=== PATIENT | male | born 1965 | race Two or more races ===

== ENCOUNTER 2018-06-11 09:16 | Inpatient (IN) | payer SELFPAY ==
[~2018-06-11] VITALS: Ht 177.8 cm; Wt 110.1 kg
[2018-06-11] MEDS ORDERED: SODIUM CHLORIDE 0.9% 1,000 ML IV ONE (10:16)
[2018-06-11] MEDS ORDERED: SODIUM CHLORIDE 0.9% 500 ML IVB ONE (10:16)
[2018-06-11] MEDS ORDERED: PROMETHAZINE HCL 25 MG/ML 1ML IV PRN (10:30)
[2018-06-11] MEDS ORDERED: cefTRIAXone 1GM/50ML D5W 50 ML IV ONE (11:30)
[2018-06-11] MEDS ORDERED: FUROSEMIDE 20 MG/2 ML VIAL IV ONE (11:30)
[2018-06-11 11:38] LABS: Basophils # (auto) 0 uL; Basophils % (auto) 0.4 % (0.0-2.0); Eosinophils # (auto) 0 uL; Hematocrit 34.7 % (41.0-53.0); Hemoglobin 11.5 g/dL (13.5-17.5); Lymphocytes # (auto) 0.6 uL; Lymphocytes % (auto) 9.9 % (10.0-50.0); Mean Corpuscular Hemoglobin 28.5 pg (28.0-32.0); Mean Corpuscular Hgb Conc. 33.1 g/dL (32.0-36.0); Mean Corpuscular Volume 86.1 fL (80.0-100.0); Monocytes # (auto) 0.5 uL; Neutrophils # (auto) 4.7 uL; Neutrophils % (auto) 80.7 % (37.0-80.0); Nucleated Red Blood Cells % 0.1 %; Platelet Count (auto) 178 10^3/uL (140-450); Red Blood Cells 4.03 10^6/uL (4.5-5.90); Red Cell Distribution Width 16.5 % (11.8-14.3); White Blood Cell 5.8 10^3/uL (4.4-10.8)
[2018-06-11 11:49] LABS: Calcium 7.3 mg/dL (8.5-10.1); Magnesium 2.2 mg/dL (1.6-2.6); Potassium 3.9 mmol/L (3.5-5.1)
[2018-06-11 11:54] LABS: BUN/Creatinine Ratio 22.6; Bilirubin, Total 0.5 mg/dL (0.2-1.0); Total Protein 6.1 g/dL (6.4-8.2)
[2018-06-11 11:57] LABS: INR 1.13 (0.9-1.15); Partial Thromboplastin Time 36.1 sec (23.78-33.04)
[2018-06-11 13:41] LABS: Urine Bacteria FEW /hpf (None Seen); Urine Blood 3+ /uL (Negative); Urine Mucus FEW (None Seen); Urine Specific Gravity 1.015 (1.001-1.035); Urine WBC 5 /hpf (0 - 3)
[2018-06-11] MEDS ORDERED: ALBUTEROL SULF 2.5 MG/0.5ML(0.5%) NEB SOLN NEB PRN (13:45)
[2018-06-11] MEDS ORDERED: NITROGLYCERIN 0.4 MG SL TAB SL PRN (13:45)
[2018-06-11] MEDS ORDERED: DEXTROSE (50%) 50ML SYRG IV PRN (13:45)
[2018-06-11] MEDS ORDERED: MORPHINE SULFATE 10 MG/ML INJ 1ML SDV IV PRN (13:45)
[2018-06-11] MEDS ORDERED: LORazepam 0.5 MG TAB PO PRN (13:45)
[2018-06-11] MEDS ORDERED: PANTOPRAZOLE 40 MG/10 ML VIAL IV ONE (13:45)
[2018-06-11] MEDS ORDERED: TEMAZEPAM 15 MG CAP PO PRN (13:45)
[2018-06-11] MEDS ORDERED: SODIUM CHLOR 0.9% PF (SALINE LOCK) 10ML VIAL/SYR IV SCH (14:00)
[2018-06-11 14:36] LABS: Alcohol, Urine < 3.0 mg/dL (0-5); Amphetamine Screen, Urine NEGATIVE (NEGATIVE); Barbiturate Scree,Urine NEGATIVE (NEGATIVE); Benzodiazephine Screen, Urine NEGATIVE (NEGATIVE); Cannabinoid Screen, Urine NEGATIVE (NEGATIVE); Cocaine Screen, Urine NEGATIVE (NEGATIVE); Opiate Scree,Urine NEGATIVE (NEGATIVE); Phencyclidine Screen, Urine NEGATIVE (NEGATIVE)
[2018-06-11] MEDS ORDERED: ENALAPRIL MALEATE 2.5 MG TAB PO ONE (14:45)
[2018-06-11 14:58] LABS: CRP High Sensitivity 8.79 mg/dL (< 0.3)
[2018-06-11] MEDS: NITROGLYCERIN 50MG/250ML 250 ML IV SCH (14:59)
--- NOTE | 2018-06-11 16:46 | NUR ---
PICC line placement Patient/Patient significant other educated on need for PICC line placement. All risks and benefits explained and all questions and concerns addressed prior to procedure. Noted past medical history and allergies with no contraindications. INR and Plt counts within acceptable range. 5 fr PICC line inserted via basilic vein using [employer] US and Tip Location System. Sterile technique with maximum barrier precautions utilized. Blood return obtained from each of the three lumens and each flushed easily with NS using proper technique. PICC secured with Stat-lock; biodisc and occlusive dressing applied. Stat portable chest x-ray obtained for PICC tip placement. *Baseline Arm Circumference 30 cm. *Internal Length 44 cm. *External Length 0 cm. *PICC lot #[id number].
[2018-06-11] MEDS: InsuLIN REG 1unit/0.01ml Soln (100units/ml) SC SCH ×2 (16:54→21:56)
[2018-06-11] MEDS: ACCU-CHEK COMFORT CURVE STRIP VI SCH ×2 (16:55→21:56)
[2018-06-11] MEDS ORDERED: LIDOCAINE 1% (LOCAL ANESTH.) PF 5ml SDV ID ONE (17:00)
--- NOTE | 2018-06-11 17:10 | NUR ---
Okay to Use PICC Line CXR confirmed. Primary RN notified.
[2018-06-11] MEDS: FUROSEMIDE 40 MG/4 ML VIAL IV SCH (17:37)
[2018-06-11 18:12] VITALS: BP 215/130
[2018-06-11] MEDS: ALBUTEROL SULF 2.5 MG/0.5ML(0.5%) NEB SOLN NEB SCH (18:12)
[2018-06-11] MEDS ORDERED: AMIODARONE HCL 150 MG in D5W 5% 100 ML IV ONE (18:15)
[2018-06-11] MEDS ORDERED: AMIODARONE HCL 900 MG in DEXTROSE 500 ML IV SCH (18:16)
[2018-06-11 18:35] LABS: Hematocrit 36.9 % (41.0-53.0); Hemoglobin 11.9 g/dL (13.5-17.5)
[2018-06-11] MEDS ORDERED: chlordiazePOXIDE HCL 5 MG CAP PO ONE (19:15)
[2018-06-11] MEDS ORDERED: THIAMINE 100mg/ml INJ (200mg/2ml VIAL) IV ONE (19:15)
[2018-06-11] MEDS ORDERED: MORPHINE SULFATE 10 MG/ML INJ 1ML SDV IV ONE (19:15)
[2018-06-11] MEDS ORDERED: FUROSEMIDE 100 MG/10ML VIAL IV ONE (19:15)
[2018-06-11 20:04] VITALS: BP 152/91
[2018-06-11] MEDS: SODIUM CHLOR 0.9% PF (SALINE LOCK) 10ML VIAL/SYR IV SCH (21:53)
[2018-06-11] MEDS: CARVEDILOL 3.125 MG TAB PO SCH (21:58)
[2018-06-11] MEDS: ATORVASTATIN 20 MG TAB PO SCH (21:58)
[2018-06-11] MEDS ORDERED: FUROSEMIDE 40 MG/4 ML VIAL IV SCH (22:00)
[2018-06-11 22:15] VITALS: BP 134/88
[2018-06-12 00:04] VITALS: BP 125/79
[2018-06-12] MEDS: ALBUTEROL SULF 2.5 MG/0.5ML(0.5%) NEB SOLN NEB SCH ×5 (00:04→19:05)
[2018-06-12] MEDS: chlordiazePOXIDE HCL 5 MG CAP PO SCH ×5 (00:05→21:00)
[2018-06-12 00:54] LABS: Hematocrit 30.5 % (41.0-53.0); Hemoglobin 9.8 g/dL (13.5-17.5)
[2018-06-12] MEDS: AMIODARONE HCL 900 MG in DEXTROSE 500 ML IV SCH (01:14)
[2018-06-12] MEDS: FUROSEMIDE 40 MG/4 ML VIAL IV SCH ×2 (06:00→17:44)
[2018-06-12 06:19] LABS: Basophils # (auto) 0 uL; Basophils % (auto) 0.4 % (0.0-2.0); Eosinophils # (auto) 0 uL; Hematocrit 31.7 % (41.0-53.0); Hemoglobin 10.2 g/dL (13.5-17.5); Lymphocytes # (auto) 0.9 uL; Lymphocytes % (auto) 15.5 % (10.0-50.0); Mean Corpuscular Hemoglobin 28.1 pg (28.0-32.0); Mean Corpuscular Hgb Conc. 32.3 g/dL (32.0-36.0); Mean Corpuscular Volume 86.9 fL (80.0-100.0); Monocytes # (auto) 0.5 uL; Monocytes % (auto) 8.8 % (0.0-12.0); Neutrophils # (auto) 4.2 uL; Neutrophils % (auto) 75.3 % (37.0-80.0); Nucleated Red Blood Cells % 0.1 %; Platelet Count (auto) 136 10^3/uL (140-450); Red Blood Cells 3.64 10^6/uL (4.5-5.90); Red Cell Distribution Width 16.3 % (11.8-14.3); White Blood Cell 5.5 10^3/uL (4.4-10.8)
[2018-06-12 06:48] LABS: Albumin 1.5 g/dL (3.4-5.0); Potassium 3.8 mmol/L (3.5-5.1)
[2018-06-12 06:56] LABS: BUN/Creatinine Ratio 21.2; Bilirubin, Total 0.5 mg/dL (0.2-1.0); Total Protein 5.2 g/dL (6.4-8.2)
[2018-06-12] MEDS: InsuLIN REG 1unit/0.01ml Soln (100units/ml) SC SCH ×4 (07:00→22:00)
[2018-06-12] MEDS: ACCU-CHEK COMFORT CURVE STRIP VI SCH ×4 (08:11→22:00)
[2018-06-12] MEDS: cefTRIAXone 1GM/50ML D5W 50 ML IV SCH (09:05)
[2018-06-12] MEDS ORDERED: NITROGLYCERIN 0.2MG/HR TOPICAL PATCH TD SCH (10:00)
[2018-06-12] MEDS: THIAMINE 100mg/ml INJ (200mg/2ml VIAL) IV SCH (10:16)
[2018-06-12] MEDS: AZITHROMYCIN 500MG/ 250ML 250 ML IV SCH (10:16)
[2018-06-12] MEDS: ASPirin 81 mg TAB PO SCH (10:16)
[2018-06-12] MEDS: SODIUM CHLOR 0.9% PF (SALINE LOCK) 10ML VIAL/SYR IV SCH ×2 (10:16→22:27)
[2018-06-12] MEDS: PANTOPRAZOLE 40 MG TAB PO SCH (10:17)
[2018-06-12] MEDS: CARVEDILOL 3.125 MG TAB PO SCH ×2 (10:17→22:27)
[2018-06-12] MEDS: ENALAPRIL MALEATE 2.5 MG TAB PO SCH (10:17)
[2018-06-12] MEDS: ENOXAPARIN SOD 30 MG/0.3 ML SYRINGE SC SCH (10:17)
[2018-06-12] MEDS ORDERED: chlordiazePOXIDE HCL 5 MG CAP ONE (14:31)
[2018-06-12] MEDS: NITROGLYCERIN 50MG/250ML 250 ML IV SCH (19:15)
[2018-06-12] MEDS ORDERED: LORazepam 2MG/ML-1ML VIAL IV PRN (21:00)
[2018-06-12] MEDS ORDERED: diphenhdrAMINE HCL 50 MG/1 ML VL IV PRN (21:00)
[2018-06-12] MEDS: PROMETHAZINE HCL 25 MG/ML 1ML IV PRN (21:40)
[2018-06-12] MEDS: MORPHINE SULFATE 10 MG/ML INJ 1ML SDV IV PRN (21:40)
[2018-06-12] MEDS: chlordiazePOXIDE HCL 25 MG CAP PO PRN (22:25)
[2018-06-12] MEDS: ATORVASTATIN 20 MG TAB PO SCH (22:27)
[2018-06-13] MEDS: ALBUTEROL SULF 2.5 MG/0.5ML(0.5%) NEB SOLN NEB SCH ×4 (00:17→18:32)
[2018-06-13] MEDS: AMIODARONE HCL 900 MG in DEXTROSE 500 ML IV SCH (00:38)
[2018-06-13 02:09] LABS: % Iron Saturation 5.8 % (20-55)
[2018-06-13 02:37] VITALS: BP 150/78
[2018-06-13] MEDS: chlordiazePOXIDE HCL 5 MG CAP PO SCH ×3 (03:00→15:18)
[2018-06-13 03:40] VITALS: BP 148/82
[2018-06-13 05:39] VITALS: BP 150/92
[2018-06-13] MEDS: FUROSEMIDE 40 MG/4 ML VIAL IV SCH ×2 (06:00→17:46)
--- NOTE | 2018-06-13 06:35 | NUR ---
Respiratory note: PT TAKEN OFF BIPAP AND PLACED ON 2 L OXYMIZER.PT TOLERATING CHANGE WELL. RN AWARE OF CHANGE.
[2018-06-13] MEDS: MORPHINE SULFATE 10 MG/ML INJ 1ML SDV IV PRN ×2 (06:49→12:03)
[2018-06-13] MEDS: ACCU-CHEK COMFORT CURVE STRIP VI SCH ×4 (08:01→22:25)
[2018-06-13] MEDS: InsuLIN REG 1unit/0.01ml Soln (100units/ml) SC SCH ×4 (08:01→22:00)
[2018-06-13 08:48] LABS: Basophils # (auto) 0 uL; Basophils % (auto) 0.4 % (0.0-2.0); Eosinophils # (auto) 0 uL; Hematocrit 29.7 % (41.0-53.0); Hemoglobin 9.5 g/dL (13.5-17.5); Lymphocytes # (auto) 0.8 uL; Lymphocytes % (auto) 13.5 % (10.0-50.0); Mean Corpuscular Hemoglobin 27.5 pg (28.0-32.0); Mean Corpuscular Hgb Conc. 32.1 g/dL (32.0-36.0); Mean Corpuscular Volume 85.4 fL (80.0-100.0); Monocytes # (auto) 0.6 uL; Monocytes % (auto) 9.2 % (0.0-12.0); Neutrophils # (auto) 4.7 uL; Neutrophils % (auto) 76.9 % (37.0-80.0); Nucleated Red Blood Cells % 0.1 %; Platelet Count (auto) 139 10^3/uL (140-450); Red Blood Cells 3.47 10^6/uL (4.5-5.90); Red Cell Distribution Width 16.3 % (11.8-14.3); White Blood Cell 6.1 10^3/uL (4.4-10.8)
[2018-06-13 09:04] LABS: Albumin 1.6 g/dL (3.4-5.0); Calcium 6.8 mg/dL (8.5-10.1); Magnesium 1.9 mg/dL (1.6-2.6); Potassium 3.6 mmol/L (3.5-5.1); Uric Acid 8.5 mg/dL (3.5-7.2)
[2018-06-13] MEDS: THIAMINE 100mg/ml INJ (200mg/2ml VIAL) IV SCH (09:04)
[2018-06-13] MEDS: cefTRIAXone 1GM/50ML D5W 50 ML IV SCH (09:04)
[2018-06-13] MEDS: SODIUM CHLOR 0.9% PF (SALINE LOCK) 10ML VIAL/SYR IV SCH ×2 (09:04→22:25)
[2018-06-13] MEDS: NITROGLYCERIN 50MG/250ML 250 ML IV SCH ×2 (09:04→11:57)
[2018-06-13 09:09] LABS: BUN/Creatinine Ratio 20.2; Bilirubin, Total 0.5 mg/dL (0.2-1.0); Total Protein 5.2 g/dL (6.4-8.2)
[2018-06-13] MEDS: ASPirin 81 mg TAB PO SCH (09:14)
[2018-06-13] MEDS: PANTOPRAZOLE 40 MG TAB PO SCH (09:15)
[2018-06-13] MEDS: ENALAPRIL MALEATE 2.5 MG TAB PO SCH (09:15)
[2018-06-13] MEDS: CARVEDILOL 3.125 MG TAB PO SCH ×2 (09:15→22:24)
[2018-06-13] MEDS: ENOXAPARIN SOD 30 MG/0.3 ML SYRINGE SC SCH (09:19)
[2018-06-13] MEDS: AZITHROMYCIN 500MG/ 250ML 250 ML IV SCH (10:28)
[2018-06-13] MEDS ORDERED: AMIODARONE HCL 200 MG TAB PO ONE (16:15)
[2018-06-13] MEDS ORDERED: MAGNESIUM SULFATE 1GM/100ML 100 ML IV ONE (16:15)
--- NOTE | 2018-06-13 20:00 | NUR ---
Admit to [facility] admitted to [facility] via bed on cardiac nurse, and portable 02. Patient connected to unit monitoring, NSR 70's and oxygen/oxymizer @ 4L/min, and weighed by bedscale. Patient oriented to Sommer Jennings, primary RN, unit, room, bed, and unit policies regarding patient care and visiting hours. All questions and concerns addressed, patient verbalized understanding. NOTE: Scrotal edema noted with generalized healed scars secondary to post shingles infection 4 months ago. MRSA swab done.
--- NOTE | 2018-06-13 20:15 | NUR ---
Cleaned pt, complete linen and gown changed. Repositioned for comfort.
[2018-06-13 21:01] VITALS: BP 137/72
[2018-06-13] MEDS: ATORVASTATIN 20 MG TAB PO SCH (22:23)
[2018-06-13] MEDS: AMIODARONE HCL 200 MG TAB PO SCH (22:24)
[2018-06-14] VITALS (7 sets, daily range): BP systolic 90–129; BP diastolic 58–75
[2018-06-14] MEDS: ALBUTEROL SULF 2.5 MG/0.5ML(0.5%) NEB SOLN NEB SCH ×4 (00:38→18:11)
[2018-06-14] MEDS ORDERED: AMLO5TAB13 PO (02:45)
[2018-06-14] MEDS ORDERED: METF-370 PO (02:45)
[2018-06-14] MEDS ORDERED: GLIM4TAB42 PO (02:46)
[2018-06-14] MEDS ORDERED: NAP500T PO (02:51)
--- NOTE | 2018-06-14 04:46 | NUR ---
Blood draw done.
[2018-06-14] MEDS: FUROSEMIDE 40 MG/4 ML VIAL IV SCH ×2 (05:29→18:00)
[2018-06-14 05:30] LABS: Hematocrit 28.9 % (41.0-53.0); Hemoglobin 9.5 g/dL (13.5-17.5)
[2018-06-14 05:37] LABS: Calcium 7.1 mg/dL (8.5-10.1); Magnesium 2.2 mg/dL (1.6-2.6); Potassium 3.5 mmol/L (3.5-5.1)
[2018-06-14] MEDS: InsuLIN REG 1unit/0.01ml Soln (100units/ml) SC SCH ×5 (06:30→23:30)
[2018-06-14] MEDS: ACCU-CHEK COMFORT CURVE STRIP VI SCH ×4 (06:30→22:43)
--- NOTE | 2018-06-14 07:50 | NUR ---
ASSESS- PT. LYING IN BED WITH EYES CLOSED, AROUSABLE TO NAME. ALERT AND ORIENTED TIMES FOUR. PT. STATED HIS BACK HURTS AT TIMES. ON OXYMIZER 4L. NO SOB. LUNGS WITH RALES DIGNA. INSPIRATORY AND EXPIRATORY. ABD. SOFT, LG., NON-TENDER. BOWEL SOUNDS ALL FOUR QUADRANTS. NO N/V. VOIDING VIA URINAL CLEAR LT. CYNTHIA URINE. SCROTOM SWOLLEN. RADIAL PULSES STRONG, PALPABLE DIGNA. PEDAL PULSES STRONG, PALPABLE DIGNA. 2 PLUS EDEMA LE DIGNA. SKIN INTACT. MULTIPLE SCABS ALL OVER BODY, NOT OPEN. MOVES UPPER EXTREMITIES WITHOUT DIFFICULTY DIGNA. MOVES LE DIGNA., WEAKER. ABLE TO TURN SELF IN BED.
[2018-06-14 09:04] LABS: BUN/Creatinine Ratio 18.1; Calcium 7.1 mg/dL (8.5-10.1); Potassium 3.5 mmol/L (3.5-5.1)
[2018-06-14] MEDS: SODIUM CHLOR 0.9% PF (SALINE LOCK) 10ML VIAL/SYR IV SCH ×2 (10:00→22:42)
[2018-06-14] MEDS: AZITHROMYCIN 500MG/ 250ML 250 ML IV SCH (10:07)
[2018-06-14] MEDS: cefTRIAXone 1GM/50ML D5W 50 ML IV SCH (10:07)
[2018-06-14] MEDS: THIAMINE 100mg/ml INJ (200mg/2ml VIAL) IV SCH (10:07)
[2018-06-14] MEDS: ENOXAPARIN SOD 30 MG/0.3 ML SYRINGE SC SCH (10:07)
[2018-06-14] MEDS: AMIODARONE HCL 200 MG TAB PO SCH ×2 (10:08→22:42)
[2018-06-14] MEDS: PANTOPRAZOLE 40 MG TAB PO SCH (10:08)
[2018-06-14] MEDS: CARVEDILOL 3.125 MG TAB PO SCH ×2 (10:09→22:40)
[2018-06-14] MEDS: ENALAPRIL MALEATE 2.5 MG TAB PO SCH (10:09)
[2018-06-14] MEDS: ASPirin 81 mg TAB PO SCH (10:09)
[2018-06-14] MEDS ORDERED: METOLAZONE 5 MG TAB PO ONE (10:15)
--- NOTE | 2018-06-14 10:30 | NUR ---
VISITOR AT THE BS.
[2018-06-14] MEDS: MORPHINE SULFATE 10 MG/ML INJ 1ML SDV IV PRN ×3 (10:55→22:48)
--- NOTE | 2018-06-14 10:55 | NUR ---
PT. REPORTING BACK PAIN 9 ON A SCALE OF 0-10. MED. WITH MORPHINE 2MG. IVP.
--- NOTE | 2018-06-14 11:25 | NUR ---
PT'S. PAIN DECREASED TO A 6.
--- NOTE | 2018-06-14 13:29 | NUR ---
NUTRITION CONSULT/ASSESSMENT NOTES Please refer to link notes of nutrition screen form filed under the intervention section of the plan of care for further details. Est. Needs: 1800 kcal to 2400 kcal (15-20 kcal/kgBW), 75 gms to 90 gms pro (1.0-1.2 gms/kgBW). Will continue to monitor pertinent labs and reassess nutrient need prn Thank you for this consult. Addendum: 06/14/18 at [address] Amended: Links added.
--- NOTE | 2018-06-14 14:57 | NUR ---
PT. HAVING BACK PAIN 9 ON A SCALE OF 0-10, MOANING IN BED. MED. WITH MORPHINE 2MG. IVP.
--- NOTE | 2018-06-14 15:25 | NUR ---
BACK PAIN HAS DECREASED TO A 5 ON A SCALE OF 0-10.
--- NOTE | 2018-06-14 16:30 | NUR ---
PT VERY TIRED. ATTEMPT P.T. TOMORROW.
--- NOTE | 2018-06-14 17:30 | NUR ---
REPORT GIVEN TO LALO BAER.
--- NOTE | 2018-06-14 17:37 | NUR ---
RECEIVED REPORT AND ASSUMED CARE OF THE PATIENT FROM PARTHA MAY , PATIENT LYING IN BED WITH EYES CLOSED APPEARS TO BE SLEEPING,
--- NOTE | 2018-06-14 18:20 | NUR ---
UNABLE TO GIVE THE LASIX 60ML DUE TO B/P BEING 94/64 AT THIS TIME, WILL CONTNINUE TO MONITOR, LYING IN BED ASKING FOR PIZZA, EXPRESS TO HIM THAT IT WAS NOT ON THE MENU FOR DINNER IN THE KITCHEN, HE WOULD HAVE TO WAIT UNTIL HE GETS HOMES, USES THE BEDPAN AND URINAL, BUT IS INCONTINENT AT TIMES DUE TO SWELLING OF THE PENIS AND SCROTUM, PICC LINE TO THE LEANA INTACT AND PATENT, O2 AT 2L BY THE OXYMIZER, A/O TIMES 4, WILL CONTINUE TO MONITOR AND GIVE REPORT TO THE NEXT SHIFT
[2018-06-14] MEDS: ATORVASTATIN 20 MG TAB PO SCH (22:41)
--- NOTE | 2018-06-14 23:33 | NUR ---
Pt stable but moaning. Bladder feels distended. Tried to help pt use urinal and only a few drops came out. I asked pt if I could place a Karimi, he said no and that they already tried and nothing came out and that when they took the Karimi back out after an hour it hurt worse. Will bladder scan pt to see how much urine is being retained.
[2018-06-14 23:47] LABS: BUN/Creatinine Ratio 18.7; Calcium 6.8 mg/dL (8.5-10.1); Potassium 3.5 mmol/L (3.5-5.1)
--- NOTE | 2018-06-15 | NUR ---
Karimi 16 Fr placed. Bladder scanner unable to read. 1400 out in [place] right after placement. Pt states abd feels better. Will continue to monitor.
[2018-06-15] MEDS: ALBUTEROL SULF 2.5 MG/0.5ML(0.5%) NEB SOLN NEB SCH ×4 (00:31→18:39)
[2018-06-15 01:21] LABS: Urine Bacteria NONE SEEN /hpf (None Seen); Urine Blood TRACE /uL (Negative); Urine Hyaline Cast MANY /lpf (0 - 2); Urine Mucus FEW (None Seen); Urine WBC 1 /hpf (0 - 3)
[2018-06-15 05:46] LABS: BUN/Creatinine Ratio 19.6; Calcium 7.1 mg/dL (8.5-10.1); Potassium 3.3 mmol/L (3.5-5.1)
--- NOTE | 2018-06-15 06:02 | NUR ---
Received call of Critical Value Glucose 44. Juice offered and a Glucerna also offered. Will check glucose in 10 min. Pt stable and states he does not feel like his glucose is low.
[2018-06-15] MEDS: InsuLIN REG 1unit/0.01ml Soln (100units/ml) SC SCH ×3 (06:30→21:53)
[2018-06-15] MEDS: FUROSEMIDE 40 MG/4 ML VIAL IV SCH ×2 (06:30→18:07)
[2018-06-15] MEDS: ACCU-CHEK COMFORT CURVE STRIP VI SCH ×4 (06:30→21:53)
--- NOTE | 2018-06-15 06:31 | NUR ---
Glucose 43 after apple juice and some Glucerna. Does not want orange juice. Now 2 Cranberry juices offered. Will check blood sugar again in 10 min.
[2018-06-15 08:00] VITALS: BP 99/56
[2018-06-15] MEDS: cefTRIAXone 1GM/50ML D5W 50 ML IV SCH (09:11)
[2018-06-15 10:00] VITALS: BP 100/64
[2018-06-15] MEDS: CARVEDILOL 3.125 MG TAB PO SCH ×2 (10:00→21:52)
[2018-06-15] MEDS: ENALAPRIL MALEATE 2.5 MG TAB PO SCH (10:00)
[2018-06-15] MEDS: ASPirin 81 mg TAB PO SCH (10:22)
[2018-06-15] MEDS: THIAMINE 100mg/ml INJ (200mg/2ml VIAL) IV SCH (10:22)
[2018-06-15] MEDS: ENOXAPARIN SOD 30 MG/0.3 ML SYRINGE SC SCH (10:22)
[2018-06-15] MEDS: AZITHROMYCIN 500MG/ 250ML 250 ML IV SCH (10:22)
[2018-06-15] MEDS: SODIUM CHLOR 0.9% PF (SALINE LOCK) 10ML VIAL/SYR IV SCH ×2 (10:23→21:37)
[2018-06-15] MEDS: AMIODARONE HCL 200 MG TAB PO SCH ×2 (10:23→21:52)
[2018-06-15] MEDS: PANTOPRAZOLE 40 MG TAB PO SCH (10:23)
[2018-06-15 10:28] LABS: BUN/Creatinine Ratio 19.2; Potassium 3.4 mmol/L (3.5-5.1)
--- NOTE | 2018-06-15 11:30 | NUR ---
PATIENT IS VERY TIRED. ATTEMPT P.T. LATER.
[2018-06-15 11:52] VITALS: BP 107/73
[2018-06-15] MEDS ORDERED: POTASSIUM CHL 10 Meq TABLET PO ONE (12:00)
[2018-06-15] MEDS: LACTULOSE 20Gm/30ML SOLN PO PRN (12:10)
--- NOTE | 2018-06-15 12:29 | NUR ---
Consent for left heart cath signed by patient. Patient states he doesn't want any blood due to his shinto and signed consent to not receive blood.
[2018-06-15] MEDS ORDERED: ACETYLCYSTEINE ORAL for CIN 20%(200MG/ML) 4ML PO STA (14:43)
[2018-06-15 15:52] VITALS: BP 115/69
[2018-06-15] MEDS: MORPHINE SULFATE 10 MG/ML INJ 1ML SDV IV PRN ×2 (16:18→21:40)
[2018-06-15 19:46] VITALS: BP 120/74
[2018-06-15] MEDS: ATORVASTATIN 20 MG TAB PO SCH (21:52)
[2018-06-15] MEDS ORDERED: ACETYLCYSTEINE ORAL for CIN 20%(200MG/ML) 4ML PO SCH (22:00)
[2018-06-15 22:16] LABS: BUN/Creatinine Ratio 18.5; Calcium 6.9 mg/dL (8.5-10.1); Potassium 3.5 mmol/L (3.5-5.1)
[2018-06-16] VITALS: BP 115/76
[2018-06-16 04:00] VITALS: BP 110/71
[2018-06-16] MEDS: MORPHINE SULFATE 10 MG/ML INJ 1ML SDV IV PRN (05:40)
[2018-06-16] MEDS: ALBUTEROL SULF 2.5 MG/0.5ML(0.5%) NEB SOLN NEB SCH ×4 (05:59→18:44)
[2018-06-16] MEDS: FUROSEMIDE 40 MG/4 ML VIAL IV SCH ×2 (06:00→18:53)
[2018-06-16 06:08] LABS: Basophils # (auto) 0 uL; Basophils % (auto) 0.3 % (0.0-2.0); Eosinophils # (auto) 0.1 uL; Eosinophils % (auto) 1.6 % (0.0-7.0); Hematocrit 30.1 % (41.0-53.0); Hemoglobin 9.9 g/dL (13.5-17.5); Lymphocytes # (auto) 0.3 uL; Lymphocytes % (auto) 5.1 % (10.0-50.0); Mean Corpuscular Hgb Conc. 33.1 g/dL (32.0-36.0); Mean Corpuscular Volume 84.5 fL (80.0-100.0); Monocytes # (auto) 0.7 uL; Monocytes % (auto) 9.5 % (0.0-12.0); Neutrophils # (auto) 5.7 uL; Neutrophils % (auto) 83.5 % (37.0-80.0); Platelet Count (auto) 160 10^3/uL (140-450); Red Blood Cells 3.56 10^6/uL (4.5-5.90); Red Cell Distribution Width 16.2 % (11.8-14.3); White Blood Cell 6.9 10^3/uL (4.4-10.8)
[2018-06-16 06:21] LABS: INR 1.07 (0.9-1.15); Partial Thromboplastin Time 29.2 sec (23.78-33.04); Prothrombin Time 11.4 sec (9.27-12.13)
[2018-06-16 06:23] LABS: BUN/Creatinine Ratio 18.4; Calcium 7.2 mg/dL (8.5-10.1); Magnesium 2.1 mg/dL (1.6-2.6); Potassium 3.5 mmol/L (3.5-5.1)
[2018-06-16] MEDS: InsuLIN REG 1unit/0.01ml Soln (100units/ml) SC SCH ×4 (07:00→21:34)
[2018-06-16] MEDS: ACCU-CHEK COMFORT CURVE STRIP VI SCH ×4 (07:00→21:34)
[2018-06-16 07:30] VITALS: BP 114/70
--- NOTE | 2018-06-16 07:30 | NUR ---
Opening Shift Note Assumed care of patient, awake and alert. No S/S of distress/SOB. On 4LPM oxygen via nasal cannula, saturation 99%. Complains of back pain 12/17, re-positioned for comfort, will give Morphine PRN. RT upper arm PICC, hematoma noted around PICC. See interventions for complete physical assessment. Bed locked on low position, side rails up x2, bed alarms on at all times, call hermosillo within reach, instructed on POC and to call for assist PRN, family at bedside, will continue to monitor for changes Q1hr and PRN.
--- NOTE | 2018-06-16 07:35 | NUR ---
Pt stable. States pain medication not working for back pain. paged for orders.
[2018-06-16] MEDS ORDERED: MORPHINE SULFATE 10 MG/ML INJ 1ML SDV IV ONE (08:00)
[2018-06-16] MEDS: cefTRIAXone 1GM/50ML D5W 50 ML IV SCH (08:34)
--- NOTE | 2018-06-16 09:10 | NUR ---
Wayne PT attempted to see patient. Wayne made aware patient was given Morphine less than an hour ago and patient sleeping at this time. Will come back and see patient later today.
[2018-06-16] MEDS: ENOXAPARIN SOD 30 MG/0.3 ML SYRINGE SC SCH (09:35)
[2018-06-16] MEDS: SODIUM CHLOR 0.9% PF (SALINE LOCK) 10ML VIAL/SYR IV SCH ×2 (09:51→21:33)
[2018-06-16] MEDS: AZITHROMYCIN 500MG/ 250ML 250 ML IV SCH (09:51)
[2018-06-16] MEDS: ASPirin 81 mg TAB PO SCH (09:51)
[2018-06-16] MEDS: THIAMINE 100mg/ml INJ (200mg/2ml VIAL) IV SCH (09:51)
[2018-06-16] MEDS: AMIODARONE HCL 200 MG TAB PO SCH ×2 (09:52→21:34)
[2018-06-16] MEDS: ENALAPRIL MALEATE 2.5 MG TAB PO SCH (09:52)
[2018-06-16] MEDS: PANTOPRAZOLE 40 MG TAB PO SCH (09:52)
[2018-06-16] MEDS: CARVEDILOL 3.125 MG TAB PO SCH ×2 (09:53→21:35)
[2018-06-16] MEDS ORDERED: ACETYLCYSTEINE ORAL for CIN 20%(200MG/ML) 4ML PO ONE ×2 (10:15→12:00)
--- NOTE | 2018-06-16 10:20 | NUR ---
Dr Lennon at bedside, updated on patient's status. Verbal orders read back and verified. Will carry out.
[2018-06-16] MEDS ORDERED: GABAPENTIN 300 MG CAP PO ONE (10:30)
[2018-06-16 11:50] VITALS: BP 110/72
[2018-06-16 12:28] LABS: Hepatitis B Surface Antigen Negative (Negative)
[2018-06-16 12:29] LABS: Hepatitis C Antibody Negative (Negative)
[2018-06-16] MEDS: HYDROmorphone HCL 2 MG/ML VL IV PRN (13:36)
--- NOTE | 2018-06-16 14:00 | NUR ---
Patient refused to be turned at this time.
[2018-06-16] MEDS ORDERED: IODIXANOL 320MG/ML 100ML BTL IV ONE ×2 (14:57→16:29)
[2018-06-16] MEDS ORDERED: LIDOCAINE 2%HCL (LOCAL ANESTH.) INJ 20ML MDV ONE ×2 (14:57→16:02)
--- NOTE | 2018-06-16 15:00 | NUR ---
Called Dr Whitmore because family wanted to know when procedure is gonna be done. Per Dr Whitmore's staff, "Dr Whitmore don't know yet". Will keep patient NPO.
[2018-06-16] MEDS: chlordiazePOXIDE HCL 25 MG CAP PO PRN (15:13)
[2018-06-16] MEDS: PROMETHAZINE HCL 25 MG/ML 1ML IV PRN (15:38)
[2018-06-16 15:39] VITALS: BP 101/64
[2018-06-16] MEDS ORDERED: IOHEXOL 350 MG/ML 100ML IJ ONE (16:03)
[2018-06-16] MEDS ORDERED: SODIUM CHL 0.9% 50 ML ONE (16:08)
[2018-06-16] MEDS ORDERED: ANGIOMAX 250 MG VIAL IV ONE (16:08)
[2018-06-16] MEDS ORDERED: MIDAZOLAM HCL 1MG/1ML-2 ML VIAL ONE (16:08)
[2018-06-16] MEDS ORDERED: fentaNYL CITRATE 100 MCG/2 ML VL ONE (16:08)
--- NOTE | 2018-06-16 16:15 | NUR ---
Patient out of room to Tank Systems Maintainer via hospital bed.
--- NOTE | 2018-06-16 16:30 | NUR ---
PT WENT DOWN TO CERTIFIED SURGICAL FIRST ASSISTANT. HOLD P.T. TODAY.
[2018-06-16] MEDS ORDERED: CLOPIDOGREL 300 MG TAB ONE (16:57)
[2018-06-16] MEDS ORDERED: ASPirin 325 MG TAB ONE (16:58)
--- NOTE | 2018-06-16 17:30 | NUR ---
Patient back to room from Autocad Designer s/p LT Heart Cath with stent on LAD per report from Marika MAY. Per Marika air went into artery, will watch out for any signs of air embolism. VS WNL, BP 117/71, HR 66, RR 12, Oxygen saturation 100 on @ LPM oxygen via nasal cannula. RT groin dressing dry and intact, no hematoma, bruising or signs of bleeding noted. Palpable pedal pulses, toes warm to touch. Bed locked on low position, side rails up x2, bed alarms on at all times, will continue to monitor.
[2018-06-16] MEDS ORDERED: SODIUM CHLORIDE 0.9% 500 ML IV ONE (17:45)
--- NOTE | 2018-06-16 19:00 | NUR ---
Paged Dr Whitmore and called back, updated on patient's status. Made aware patient's family wanted to speak to him. Per Dr Whitmore patient is already out of hospital. Received telephone order to transfer patient to Telemetry floor. Will carry out order.
--- NOTE | 2018-06-16 19:30 | NUR ---
SHIFT OPENING NOTE RECEIVED PATIENT ASLEEP. AWOKEN WITH VOICE AND LIGHT TOUCH. PATIENT IS STILL GROGGY FROM PROCEDURE MEDS. ON 2 L N/C. PHYSICAL ASSESSMENT COMPLETED. PATIENT IS STATUS POST LHC WITH ACCESS THROUGH RIGHT GROIN. DRESSING NOTED ON RIGHT LOWER ABDOMINAL AREA.C/D/I NO BLEEDING OR HEMATOMA PRESENT. NORMAL PULSES IN RIGHT LOWER EXTREMITY. PICC ON RIGHT UPPER ARM. MARCUS CATH DRAINING YELLOW URINE. INSTRUCTED PATIENT AND FAMILY ON POC AND TO CALL FOR ASSIST NEEDED. BED IS IN THE LOWEST POSITION WITH SIDE RAILS UP X2, CALL LIGHT IS WITHIN REACH.
[2018-06-16 19:48] VITALS: BP 119/77
[2018-06-16] MEDS: GABAPENTIN 300 MG CAP PO SCH (21:35)
[2018-06-16] MEDS: ATORVASTATIN 20 MG TAB PO SCH (21:35)
--- NOTE | 2018-06-16 22:10 | NUR ---
FAMILY LEFT BEDSIDE WENT HOME FOR THE NIGHT
[2018-06-16 22:25] LABS: Calcium 7.1 mg/dL (8.5-10.1); Potassium 3.4 mmol/L (3.5-5.1)
--- NOTE | 2018-06-16 23:30 | NUR ---
RIGHT GROIN AREA CHECK DRESSING IS C/D/I. NO BLEEDING OR HEMATOMA NOTED. NORMAL PULSES IN RIGHT LOWER EXTREMITY. WILL CONTINUE TO CLOSELY MONITOR.
[2018-06-17] VITALS (7 sets, daily range): BP systolic 120–129; BP diastolic 62–86
[2018-06-17] MEDS: ALBUTEROL SULF 2.5 MG/0.5ML(0.5%) NEB SOLN NEB SCH ×4 (00:23→19:56)
--- NOTE | 2018-06-17 01:00 | NUR ---
ROUNDS PATIENT IS LAYING IN BED AWAKE WATCHING TV. ASSISTED HIM WITH REPOSITIONING. NO SOB OR DISTRESS NOTED. VS STABLE. WILL CONTINUE TO MONITOR.
--- NOTE | 2018-06-17 01:10 | NUR ---
RIGHT GROIN AREA CHECK DRESSING IS C/D/I. NO BLEEDING OR HEMATOMA NOTED. NORMAL PULSES IN RIGHT LOWER EXTREMITY. WILL CONTINUE TO CLOSELY MONITOR.
--- NOTE | 2018-06-17 05:00 | NUR ---
MORNING HYGIENE CARE FULL BED BATH PERFORMED. PATIENT CLEANSED WITH SOAP AND WATER. FULL LINEN CHANGE DONE. GOWN CHANGED. PATIENT REPOSITIONED FOR COMFORT. TOLERATED IT WELL.
--- NOTE | 2018-06-17 05:05 | NUR ---
RIGHT GROIN SITE CHECK NO NEW BLEEDING OR HEMATOMA NOTED. NORMAL PULSES IN RIGHT LOWER EXTREMITY. WILL CONTINUE TO MONITOR.
--- NOTE | 2018-06-17 05:15 | NUR ---
ICE CHIPS PROVIDED TO PATIENT
[2018-06-17] MEDS: InsuLIN REG 1unit/0.01ml Soln (100units/ml) SC SCH ×4 (05:57→21:43)
[2018-06-17] MEDS: FUROSEMIDE 40 MG/4 ML VIAL IV SCH ×2 (05:57→18:11)
[2018-06-17] MEDS: ACCU-CHEK COMFORT CURVE STRIP VI SCH ×4 (05:57→21:45)
--- NOTE | 2018-06-17 07:00 | NUR ---
Respiratory note:SCHED MED NEB TX REFUSE: REFUSED TX AT THIS TIME, STATES HE IS TIRED WOULD LIKE TO CONTINUE SLEEPING. NO SS SOB, OR RESP DISTRESS NOTED, SPO2 98% @ RA, HR 78, RR 16, B/S COARSE DIGNA T/O. WILL CONTINUE TO MONITOR PATIENT, PT AWARE OF ANY SS OF SOB TO CONTACT RN FOR MED NEB TX.
--- NOTE | 2018-06-17 07:10 | NUR ---
END OF SHIFT REPORT GIVEN AND CARE ENDORSED TO DAY SHIFT RN.
[2018-06-17] MEDS: HYDROmorphone HCL 2 MG/ML VL IV PRN ×2 (08:31→16:59)
[2018-06-17] MEDS: cefTRIAXone 1GM/50ML D5W 50 ML IV SCH (08:41)
[2018-06-17] MEDS: AZITHROMYCIN 500MG/ 250ML 250 ML IV SCH (10:09)
--- NOTE | 2018-06-17 10:09 | NUR ---
PT. WILL BE TRANSFERRED TO [address] .REPORT GIVEN TO LALO MAN.
[2018-06-17] MEDS: CLOPIDOGREL BISULFATE 75 MG TAB PO SCH (10:19)
[2018-06-17] MEDS: ENOXAPARIN SOD 30 MG/0.3 ML SYRINGE SC SCH (10:19)
[2018-06-17] MEDS: ASPirin 81 mg TAB PO SCH (10:20)
[2018-06-17] MEDS: PANTOPRAZOLE 40 MG TAB PO SCH (10:20)
[2018-06-17] MEDS: GABAPENTIN 300 MG CAP PO SCH ×2 (10:21→21:45)
[2018-06-17] MEDS: AMIODARONE HCL 200 MG TAB PO SCH ×2 (10:22→21:44)
[2018-06-17] MEDS: CARVEDILOL 3.125 MG TAB PO SCH ×2 (10:22→21:44)
[2018-06-17] MEDS: SODIUM CHLOR 0.9% PF (SALINE LOCK) 10ML VIAL/SYR IV SCH ×2 (10:26→21:44)
--- NOTE | 2018-06-17 10:40 | NUR ---
Received reports from [facility] RN, patient transferred to room via bed. Patient oriented to floor policy. Bed alarm on and side rails up x2. Will continue care.
--- NOTE | 2018-06-17 11:33 | NUR ---
Resumed care of patient at 0700. Orders reviewed and ongoing assessments done. Being treated for multiple problems and S/P [facility] yesterday with intervention. Remains alert and oriented and able to make needs known. Insertion site to right groin with dressings, dry and intact with no raised hematoma and denies pain, good palpable pulse to right lower extremity. Continues to c/o chronic back pain. Offered to get out of bed to chair but declined. Medicated with Dilaudid at 0831, effective. Poor oral intake and declined breakfast. Did obtain a cup of fruit cocktail and a yoghurt, reinforced the importance of nutrition for healing. at bedside assisting with ADL's. Dr. Lennon, senior materials analyst rounded on the patient earlier today. Discussed patient's condition and plan of care. Patient's and daughter at bedside. Patient transferred by retail sales professional Helen at 1030 to room 297 [address].
--- NOTE | 2018-06-17 12:17 | NUR ---
Respiratory note: SCHED MED NEB TX REFUSED: PATIENT WANTS TO CONTINUE SLEEPING, STATES NO SOB AND NO RESP DISTRESS NOTED AT THIS TIME. PATIENT NO SS OF SOB OR RESP DISTRESS, SPO2 100% @ 2 L NC, HR 79, RR 16, B/S CLEAR DIGNA T/O. WILL CONTINUE TO MONITOR PATIENT T/O. FAMILY AT BEDSIDE.
--- NOTE | 2018-06-17 16:00 | NUR ---
Followed up with Wayne ALVAREZ regarding PT evaluation. Will continue care.
--- NOTE | 2018-06-17 17:45 | NUR ---
Noted to have wound on the sacral area. Photos taken. Cleansed the wound, let it dry, applied barrier cream and cover with optifoam dressing. Wound consult ordered. Addendum: 06/17/18 at 1758 by Rose Nguyen RN Turned to sides every 2 hours.
[2018-06-17] MEDS: THIAMINE HCL 100 MG TAB PO SCH (18:10)
--- NOTE | 2018-06-17 20:00 | NUR ---
MARCUS OUTPUT EMPTIED 900ML CLEAR CYNTHIA URINE FROM MARCUS CATHETER.
--- NOTE | 2018-06-17 20:02 | NUR ---
RT NOTE PT WAS SEEN BY RT FOR HNN TX. PT TOLERATES WELL VIA MASK. NO ADVERSE REACTION NOTED. CONT ORDERED POX 91% ON R/A. 2L NASAL CANNULA ON FOR PT USE NEEDED Addendum: 06/17/18 at 2002 by Sofiya Arana RT Amended: Links added.
[2018-06-17] MEDS: ATORVASTATIN 20 MG TAB PO SCH (21:44)
[2018-06-18] MEDS: ALBUTEROL SULF 2.5 MG/0.5ML(0.5%) NEB SOLN NEB SCH ×4 (00:27→20:19)
[2018-06-18 05:07] VITALS: BP 132/77
[2018-06-18] MEDS: FUROSEMIDE 40 MG/4 ML VIAL IV SCH (06:34)
[2018-06-18] MEDS: InsuLIN REG 1unit/0.01ml Soln (100units/ml) SC SCH ×4 (06:34→22:00)
[2018-06-18] MEDS: ACCU-CHEK COMFORT CURVE STRIP VI SCH ×4 (06:34→22:23)
[2018-06-18 06:54] LABS: Hematocrit 28.6 % (41.0-53.0); Hemoglobin 9.4 g/dL (13.5-17.5); Mean Corpuscular Hemoglobin 28.1 pg (28.0-32.0); Mean Corpuscular Hgb Conc. 32.9 g/dL (32.0-36.0); Mean Corpuscular Volume 85.3 fL (80.0-100.0); Platelet Count (auto) 175 10^3/uL (140-450); Red Blood Cells 3.35 10^6/uL (4.5-5.90); Red Cell Distribution Width 16.1 % (11.8-14.3); White Blood Cell 5.9 10^3/uL (4.4-10.8)
[2018-06-18 07:01] LABS: BUN/Creatinine Ratio 17.7; Calcium 7.5 mg/dL (8.5-10.1); Magnesium 2.2 mg/dL (1.6-2.6); Potassium 3.4 mmol/L (3.5-5.1)
[2018-06-18 07:14] LABS: Basophils % (manual) 0 (0.0-2.0); Blast Cells 0; Metamyelocytes % 0; Myelocytes % 0; Promyelocytes % 0; Reactive Lymphocytes 0
--- NOTE | 2018-06-18 08:00 | NUR ---
Opening Shift Note Assumed care of patient, awake and alert. No S/S of distress/SOB or pain. With sacral optifoam dressing intact. For wound consult today. Instructed on POC and to call for assist PRN, will continue to monitor for changes Q1hr and PRN.
[2018-06-18 08:23] VITALS: BP 143/62
[2018-06-18] MEDS: cefTRIAXone 1GM/50ML D5W 50 ML IV SCH (09:20)
[2018-06-18] MEDS: ENOXAPARIN SOD 30 MG/0.3 ML SYRINGE SC SCH (09:27)
[2018-06-18] MEDS: PANTOPRAZOLE 40 MG TAB PO SCH (09:27)
[2018-06-18] MEDS: CLOPIDOGREL BISULFATE 75 MG TAB PO SCH (09:28)
[2018-06-18] MEDS: ASPirin 81 mg TAB PO SCH (09:28)
[2018-06-18] MEDS: CARVEDILOL 3.125 MG TAB PO SCH ×2 (09:28→22:23)
[2018-06-18] MEDS: GABAPENTIN 300 MG CAP PO SCH ×2 (09:28→22:23)
[2018-06-18] MEDS: AMIODARONE HCL 200 MG TAB PO SCH ×2 (09:29→22:22)
[2018-06-18] MEDS: THIAMINE HCL 100 MG TAB PO SCH (09:29)
[2018-06-18] MEDS: SODIUM CHLOR 0.9% PF (SALINE LOCK) 10ML VIAL/SYR IV SCH ×2 (09:29→22:22)
[2018-06-18] MEDS: HYDROmorphone HCL 2 MG/ML VL IV PRN (10:02)
[2018-06-18] MEDS: ENALAPRIL MALEATE 2.5 MG TAB PO SCH (10:02)
[2018-06-18] MEDS: AZITHROMYCIN 500MG/ 250ML 250 ML IV SCH (10:02)
[2018-06-18 11:06] LABS: Band Neutrophils % (manual) 2; Eosinophils % (manual) 2 (0-7); Lymphocytes % (manual) 17 (10.0-50.0); Monocytes % (manual) 10 (0-12)
--- NOTE | 2018-06-18 11:48 | NUR ---
WOUND CARE NOTE: Wound care in to see patient per wound care request regarding"wound sacral area" that are noted by bedside nurse upon assessment. Bedside nurse took photograph of patient's wounds for reference. Patient is 52 y/o male with admitting diagnosis of CHF. Patient is resting in bed in Rm 297B. He's awake and follow simple direction. Patient is premedicated for pain by his bedside nurse prior skin assessment. Patient is able to assist in turning and repositioning. His current Scottie score of 16. Skin/wound assessment done with the assistance of patient's nurse, LALO Rose. Noted patient's sacrum has dark pigmented skin with 1x0.6cm open partial thickness wound to medial sacrum and 2x3cm open partial thickness wound to R sacrum. Wounds are red with hyperpigmented surrounding skin, scant serous drainage noted, no odor noted. RN reported that patient had episode of incontinence of soft/loose stool early this morning. Sacral pressure injury is consistent with Stage 2 pressure injury. Cleansed sacral wounds with wound cleanser,patted dry with gauze, applied Z Guard cream and covered with Opti foam sacral dressing. Repositioned patient for comfort facing his L side, redistributed pressure points with pillows. Patient tolerated well. Patient's family and LALO Rose at bedside. RECOMMENDATION: BID/PRN dressing change to sacral wounds per MD order, Dietary consult, frequent turning and repositioning schedule as condition permits, redistribute pressure points with pillows, air mattress, continue monitoring by wound care while patient is hospitalized. Addendum: 06/18/18 at 1504 by Rema Guerin RN Amended: Links added.
[2018-06-18 12:06] LABS: Immunoglobulin G, Serum 972 mg/dL (700-1600)
--- NOTE | 2018-06-18 12:14 | NUR ---
Nutrition Follow-up Notes WT: 121.0 kg Pt was sleeping with no family by beside. per records pt with NSTEMI and s/p PTCA. pt with no distress noted per nursing. pt is currently on CCHO 60 gm renal specific 70 gm protein cardiac diet with inadequate PO of < 50% x 6 per RN doc Est. Needs: 1800 kcal to 2400 kcal (15-20 kcal/kgBW), 75 gms to 90 gms pro (1.0-1.2 gms/kgBW). Will continue to monitor pertinent labs and reassess nutrient need prn Labs: BUN 49 H, CREAT 2.77 H, CA 7.5 L. Skin: Scottie scale 13, mod risk, skin intact per RN doc GI: Pt had 1 BM 06/15/18 per respiratory director. PES: Obesity r/t excessive PO intake aeb 195% IBW, BMI 38.1 kg/m2 and increased body adiposity Altered nutrition related lab values r/t acute/chronic medical condition aeb elev. renal labs, Trop I, HbA1c, LFTs, hypocalcemia and severe hypoalbuminemia Will continue to monitor PO intake, skin status, pertinent labs and weight trend. F/u in 3-5 days. Rec.: 1.) If Albumin level continues trending down with improved renal labs, consider Prostat 1 pkt BID. 3.) Consider close supervision and recording of pt's PO intake every meal 4.) Refer to CDE/RD for further nutrition educ. and weight monitoring upon discharge.5.) Continue current plan of care.
[2018-06-18 12:26] VITALS: BP 125/69
--- NOTE | 2018-06-18 13:30 | NUR ---
Dr. Wong at bedside, new orders received. For discharge planning. Karimi catheter may be discontinued once patient is ambulatory.
[2018-06-18] MEDS ORDERED: ENA2.5T PO (13:43)
[2018-06-18] MEDS ORDERED: ATOR20TA50 PO (13:43)
[2018-06-18] MEDS ORDERED: CAR3125T PO (13:43)
[2018-06-18] MEDS ORDERED: CLOP75TA28 PO (13:43)
[2018-06-18] MEDS ORDERED: POTA-167 PO (13:43)
[2018-06-18] MEDS ORDERED: FURO40TA PO (13:43)
[2018-06-18] MEDS ORDERED: GLIM4TAB42 PO (13:43)
[2018-06-18] MEDS ORDERED: AMI200T PO (13:43)
[2018-06-18] MEDS ORDERED: PANT40T PO (13:43)
[2018-06-18] MEDS ORDERED: ASPI81CH43 PO (13:43)
[2018-06-18] MEDS ORDERED: CHOLECALCIFEROL (VITD3) 1,000 UNIT TAB PO ONE (13:45)
[2018-06-18] MEDS ORDERED: POTASSIUM CHL 20 Meq TABLET PO ONE (13:45)
[2018-06-18] MEDS ORDERED: TEMAZEPAM 15 MG CAP PO PRN (13:45)
--- NOTE | 2018-06-18 15:15 | NUR ---
Asif at bedside, discussed with the patient and family about benefits of having health insurance.
--- NOTE | 2018-06-18 16:00 | NUR ---
Patient turned to side every 2 hours.
[2018-06-18 17:05] VITALS: BP 140/74
[2018-06-18] MEDS ORDERED: FUROSEMIDE 40 MG TAB PO SCH (18:00)
[2018-06-18] MEDS: FUROSEMIDE 20 MG TAB PO SCH (18:07)
--- NOTE | 2018-06-18 18:24 | NUR ---
PICC Line Dressing Changes PICC line dressing change done with a sterile technique. Cleansed with chloraprep scrub/betadine. Stat lock, and bio-patch as available. Occlusive dressing applied. Changed claves weekly and post lab draw.
[2018-06-18 21:53] VITALS: BP 139/74
[2018-06-18] MEDS: POTASSIUM CHL 10 Meq TABLET PO SCH (22:23)
[2018-06-18] MEDS: ATORVASTATIN 20 MG TAB PO SCH (22:23)
[2018-06-19] MEDS: ALBUTEROL SULF 2.5 MG/0.5ML(0.5%) NEB SOLN NEB SCH ×4 (01:01→12:02)
[2018-06-19 05:54] VITALS: BP 144/86
[2018-06-19] MEDS: FUROSEMIDE 20 MG TAB PO SCH (06:54)
[2018-06-19] MEDS: ACCU-CHEK COMFORT CURVE STRIP VI SCH ×2 (06:54→11:20)
[2018-06-19] MEDS: InsuLIN REG 1unit/0.01ml Soln (100units/ml) SC SCH ×2 (06:54→11:20)
--- NOTE | 2018-06-19 06:58 | NUR ---
CLOSING NOTE PATIENT RESTING IN BED NO S/S OF DISTRESS NOTED. DRESSING TO RIGHT GROIN REMAINS C/D/I. PATIENT. MARCUS CATH PATENT AND DRAINING TO GRAVITY. DRESSING TO SACRUM C/D/I. TURN [id number] WITH NURSE ASSIST.
[2018-06-19 07:06] LABS: Basophils # (auto) 0 uL; Basophils % (auto) 0.8 % (0.0-2.0); Eosinophils # (auto) 0.3 uL; Eosinophils % (auto) 5.4 % (0.0-7.0); Hematocrit 27.4 % (41.0-53.0); Hemoglobin 9.2 g/dL (13.5-17.5); Lymphocytes # (auto) 1.1 uL; Lymphocytes % (auto) 17.6 % (10.0-50.0); Mean Corpuscular Hemoglobin 28.3 pg (28.0-32.0); Mean Corpuscular Hgb Conc. 33.4 g/dL (32.0-36.0); Mean Corpuscular Volume 84.5 fL (80.0-100.0); Monocytes # (auto) 0.9 uL; Monocytes % (auto) 14.8 % (0.0-12.0); Neutrophils # (auto) 3.8 uL; Neutrophils % (auto) 61.4 % (37.0-80.0); Nucleated Red Blood Cells % 0.1 %; Platelet Count (auto) 204 10^3/uL (140-450); Red Blood Cells 3.25 10^6/uL (4.5-5.90); Red Cell Distribution Width 15.8 % (11.8-14.3); White Blood Cell 6.2 10^3/uL (4.4-10.8)
[2018-06-19 07:36] LABS: Calcium 7.7 mg/dL (8.5-10.1); Potassium 3.4 mmol/L (3.5-5.1)
[2018-06-19 07:39] LABS: BUN/Creatinine Ratio 18.7
[2018-06-19] MEDS: HYDROmorphone HCL 2 MG/ML VL IV PRN (07:52)
--- NOTE | 2018-06-19 08:48 | NUR ---
Opening Shift Note Assumed care of patient, awake and alert, oriented x 4 and verbally responsive. Respiratory even and unlabored. No S/S of distress/SOB or pain. Skin is warm and dry to touch. S/p LHC, dressing , dry , no drainage noted. Instructed on POC and to call for assist PRN, will continue to monitor for changes Q1hr and PRN.
[2018-06-19] MEDS: CLOPIDOGREL BISULFATE 75 MG TAB PO SCH (09:18)
[2018-06-19] MEDS: PANTOPRAZOLE 40 MG TAB PO SCH (09:19)
[2018-06-19] MEDS: POTASSIUM CHL 10 Meq TABLET PO SCH (09:19)
[2018-06-19] MEDS: ASPirin 81 mg TAB PO SCH (09:19)
[2018-06-19] MEDS: GABAPENTIN 300 MG CAP PO SCH (09:19)
[2018-06-19] MEDS: AMIODARONE HCL 200 MG TAB PO SCH (09:20)
[2018-06-19] MEDS: THIAMINE HCL 100 MG TAB PO SCH (09:20)
[2018-06-19] MEDS: CARVEDILOL 3.125 MG TAB PO SCH (09:20)
[2018-06-19] MEDS: SODIUM CHLOR 0.9% PF (SALINE LOCK) 10ML VIAL/SYR IV SCH (09:26)
[2018-06-19 09:28] VITALS: BP 136/70
[2018-06-19] MEDS: ENALAPRIL MALEATE 2.5 MG TAB PO SCH (09:30)
[2018-06-19] MEDS: ENOXAPARIN SOD 30 MG/0.3 ML SYRINGE SC SCH (09:30)
--- NOTE | 2018-06-19 09:42 | NUR ---
Bernal catheter dc'd Order to discontinue bernal catheter. Bernal dc'd with clean technique following deflation of balloon. Patient tolerated well with no complaints of pain. Continue care.
[2018-06-19] MEDS: PROMETHAZINE HCL 25 MG/ML 1ML IV PRN (09:54)
[2018-06-19] MEDS ORDERED: CHOLECALCIFEROL (VITD3) 1,000 UNIT TAB PO SCH (10:00)
[2018-06-19] MEDS ORDERED: CHOL20009 PO (12:27)
[2018-06-19] MEDS ORDERED: FER325T PO (12:27)
[2018-06-19] MEDS ORDERED: GABA300C10 PO (12:27)
[2018-06-19] MEDS ORDERED: HYDROmorphone HCL 2 MG/ML VL IV PRN (12:30)
[2018-06-19] MEDS ORDERED: POTASSIUM CHL 10 Meq TABLET PO ONE (12:30)
[2018-06-19] MEDS ORDERED: chlordiazePOXIDE HCL 25 MG CAP PO PRN (12:30)
[2018-06-19 13:29] VITALS: BP 138/73
--- NOTE | 2018-06-19 13:30 | NUR ---
Oxygen room air 90 -93 %, Dr. Wong made aware.
[2018-06-19] MEDS: LACTULOSE 20Gm/30ML SOLN PO PRN (13:36)
[2018-06-19 14:18] VITALS: BP 135/68
--- NOTE | 2018-06-19 14:45 | NUR ---
Patient walks well with PT.
--- NOTE | 2018-06-19 15:00 | NUR ---
Patient is unable to void, checked bladder , there is urine about [address] Wong notified, instructed to straight cath.
--- NOTE | 2018-06-19 15:41 | NUR ---
Try to give patient straight cath, patient still wants more time.
--- NOTE | 2018-06-19 16:06 | NUR ---
Patient urinated clear yellow urine.
--- NOTE | 2018-06-19 16:40 | NUR ---
Discharge instructions given as ordered. Encourage to follow up with PMD (Follow up with accounting machine operator in 1-[address] Whitmore Address : [address], [place] [address] , Follow up with Nephrology in 1-[address] Lennon Address : [address] ,[place] [address] Follow up with PCP in 1-2 weeks. Patient has no insurance, offered Urgent care visit for 45$ coupon. Patient should be referred to [facility] 8 AM- 8 PM # [phone] Ext [phone] Address : [address] [facility], , [id number])as instructed. All questions and concerns addressed. Patient verbalized understanding. Medication reconciliation form completed and copy given to patient. IV removed with catheter intact, pressure dressing applied, bernal catheter removed. Telemetry unit returned to [facility]. Patient taken to vehicle via wheelchair with all personal belongings, accompanied by staff and family member. No distress noted at time of departure.
== END 2018-06-19 16:40 | disposition home or self-care (01) | DRG 246 ==
LOC: ER 09:22 → OVERFLOW 13:37 → TELE 14:53 → DOU IN ICU 06-13 20:00 → TELE-WESTW 06-17 10:49
PROVIDERS: ADMIT Internal Medicine; ATTEND Internal Medicine
PROC: 02HV33Z Insertion of Infusion Device into Superior Vena Cava, Percutaneous Approach (ICD-10-PCS; 2018-06-11)
PROC: 5A09357 Assistance with Respiratory Ventilation, Less than 24 Consecutive Hours, Continuous Positive Airway Pressure (ICD-10-PCS; 2018-06-11)
PROC: 5A09357 Assistance with Respiratory Ventilation, Less than 24 Consecutive Hours, Continuous Positive Airway Pressure (ICD-10-PCS; 2018-06-13)
PROC: 027034Z Dilation of Coronary Artery, One Artery with Drug-eluting Intraluminal Device, Percutaneous Approach (ICD-10-PCS; principal; 2018-06-16)
PROC: 4A023N7 Measurement of Cardiac Sampling and Pressure, Left Heart, Percutaneous Approach (ICD-10-PCS; 2018-06-16)
PROC: B2111ZZ Fluoroscopy of Multiple Coronary Arteries using Low Osmolar Contrast (ICD-10-PCS; 2018-06-16)
PROC: B2151ZZ Fluoroscopy of Left Heart using Low Osmolar Contrast (ICD-10-PCS; 2018-06-16)
PROC: B41C1ZZ Fluoroscopy of Pelvic Arteries using Low Osmolar Contrast (ICD-10-PCS; 2018-06-16)
DX: I21.4 Non-ST elevation (NSTEMI) myocardial infarction (principal); E43 Unspecified severe protein-calorie malnutrition; I50.43 Acute on chronic combined systolic (congestive) and diastolic (congestive) heart failure; J18.9 Pneumonia, unspecified organism; J96.00 Acute respiratory failure, unspecified whether with hypoxia or hypercapnia; N17.0 Acute kidney failure with tubular necrosis; I13.0 Hypertensive heart and chronic kidney disease with heart failure and stage 1 through stage 4 chronic kidney disease, or unspecified chronic kidney disease; I42.0 Dilated cardiomyopathy; I47.2 Ventricular tachycardia; N04.9 Nephrotic syndrome with unspecified morphologic changes; N18.4 Chronic kidney disease, stage 4 (severe); D50.9 Iron deficiency anemia, unspecified; D63.8 Anemia in other chronic diseases classified elsewhere; D69.6 Thrombocytopenia, unspecified; E11.22 Type 2 diabetes mellitus with diabetic chronic kidney disease; E11.21 Type 2 diabetes mellitus with diabetic nephropathy; E11.319 Type 2 diabetes mellitus with unspecified diabetic retinopathy without macular edema; E55.9 Vitamin D deficiency, unspecified; E66.01 Morbid (severe) obesity due to excess calories; E78.5 Hyperlipidemia, unspecified; E86.0 Dehydration; M54.9 Dorsalgia, unspecified; I25.10 Atherosclerotic heart disease of native coronary artery without angina pectoris; I25.5 Ischemic cardiomyopathy; K44.9 Diaphragmatic hernia without obstruction or gangrene; K59.00 Constipation, unspecified; K76.1 Chronic passive congestion of liver; N05.9 Unspecified nephritic syndrome with unspecified morphologic changes; N40.0 Benign prostatic hyperplasia without lower urinary tract symptoms; N43.3 Hydrocele, unspecified; Z83.3 Family history of diabetes mellitus; Z91.19 Patient's noncompliance with other medical treatment and regimen; Z95.5 Presence of coronary angioplasty implant and graft; Z90.49 Acquired absence of other specified parts of digestive tract; Z68.34 Body mass index [BMI] 34.0-34.9, adult; Z79.82 Long term (current) use of aspirin; Z79.899 Other long term (current) drug therapy
CPT/HCPCS: 36415; 36569; 36600; 71045; 71046; 74176; 76775; 76870; 80048; 80053; 80061; 80307; 81001; 82150; 82306; 82378; 82550; 82570; 82784; 82805; 82962; 83036; 83520; 83540; 83550; 83605; 83690; 83735; 83880; 84100; 84132; 84156; 84300; 84443; 84484; 84550; 85007; 85014; 85018; 85025; 85027; 85045; 85610; 85652; 85730; 86038; 86141; 86160; 86256; 86334; 86703; 86803; 87040; 87081; 87086; 87340; 93005; 93306; 93970; 94640; 94660; 96361; 96365; 96375; 97110; 97116; 97530; 99152; 99291; A6257; C1874; C9113; G0378; J0696; J1815; J2250; J7060; Q9967